=== PATIENT | female | born 1945 | race Caucasian/White ===

== ENCOUNTER 2025-11-05 03:19 | Inpatient (IN) | payer BC, MEDICARE ==
[2025-11-05 03:45] LABS: #Basophils 0.03 10x3/uL (0.0-0.2); #Eosinophils 0.03 10x3/uL (0.0-0.5); #Monocytes 0.73 10x3/uL (0.0-1.1); #Neutrophils 7.72 10x3/uL (1.5-8.4); %Basophils 0.3 % (0.0-2.0); %Eosinophils 0.3 % (0.0-6.0); %Lymphocytes 16.4 % (18.0-47.0); %Monocytes 7.1 % (0.0-10.0); %Neutrophils 75.5 % (40.0-75.0); Hematocrit 32.7 % (34.9-44.5); Hemoglobin 10.3 g/dL (12.0-15.5); Mean Corpuscular Hemoglobin 28.3 pg (27.0-33.0); Mean Corpuscular Volume 89.8 fL (81.6-98.3); Platelet Count 221 10x3/uL (150-450); Red Blood Cell (RBC) Count 3.64 10x6/uL (3.90-5.03); White Blood Cell (WBC) Count 10.23 10x3/uL (3.5-10.5)
[2025-11-05 04:05] LABS: ALT (SGPT) 22 U/L (Less than 34); AST (SGOT) 28 U/L (11-34); Albumin 3.7 g/dL (3.1-4.5); Alkaline Phosphatase 46 U/L (40-110); Anion Gap 15 mmol/L (10-20); BUN (Urea Nitrogen) 25 mg/dL (9.8-20.1); Bilirubin, Total 0.4 mg/dL (0.3-1.2); Calc. Creatinine Clearance 0 mL/min (70-130); Calcium 9.3 mg/dL (7.8-10.44); Carbon Dioxide 22 mmol/L (23-31); Chloride 106 mmol/L (98-107); Globulin 3.1 g/dL (2.4-3.5); Glucose 113 mg/dL (83-110); Potassium 4.1 mmol/L (3.5-5.1); Sodium 139 mmol/L (136-145); Troponin I 0.013 ng/mL (< 0.028)
[2025-11-05] MEDS ORDERED: Ondansetron PF 4 MG/2 ML Vial IVP PRN (04:23)
[2025-11-05] MEDS ORDERED: Calcium Carbonate 500 MG ChewTAB PO PRN (04:23)
[2025-11-05] MEDS ORDERED: Guaifenesin DM 100-10/5 ML UDCUP PO PRN (04:23)
[2025-11-05] MEDS ORDERED: Acetaminophen 325 MG TAB PO PRN (04:23)
[2025-11-05] MEDS ORDERED: Bisacodyl 10 MG SUPP PR PRN (04:23)
[2025-11-05] MEDS ORDERED: Senokot S 8.6-50 MG TAB PO PRN (04:23)
[2025-11-05] MEDS ORDERED: Melatonin 3 MG TAB PO PRN (04:23)
[2025-11-05] MEDS ORDERED: Electrolyte Replacement Protocol 1 EACH FS SCH (04:30)
[2025-11-05] MEDS ORDERED: Nitroglycerin 0.4 MG TAB (25 Tab Bottle) SL PRN (05:10)
[2025-11-05 05:29] VITALS: BMI 27.4
[2025-11-05] MEDS ORDERED: PHOS-NAK 1 PKT PACK PO PRN (05:45)
[2025-11-05] MEDS ORDERED: Potassium Chloride 20 MEQ in Premix 1 BAG IVPB PRN (05:45)
[2025-11-05] MEDS: Carvedilol 12.5 MG TAB PO SCH (06:19)
[2025-11-05] MEDS ORDERED: Carvedilol 12.5 MG TAB PO SCH ×2 (08:00→21:00)
[2025-11-05 08:37] LABS: Cardiac Risk 2.3 (Less than 4.5); Cholesterol 135.0 mg/dl (< 200 Desired); HDL Cholesterol 59.0 mg/dL (>60 Neg Risk); LDL Cholesterol, Calculated 62.0 mg/dL; Triglycerides 69.0 mg/dL (Less than 150)
[2025-11-05] MEDS ORDERED: Enoxaparin 40 MG (0.4 mL) SYRINGE SC SCH ×2 (09:00→21:00)
[2025-11-05] MEDS ORDERED: Lisinopril 10 MG TAB PO SCH (09:00)
[2025-11-05] MEDS: Lisinopril 20 MG TAB PO SCH (09:13)
[2025-11-05] MEDS: Apixaban 5 MG TAB PO SCH (10:10)
[2025-11-05] MEDS: Apixaban 2.5 MG TAB PO SCH ×2 (10:10→20:00)
[2025-11-06 04:18] LABS: #Basophils 0.03 10x3/uL (0.0-0.2); #Eosinophils 0.21 10x3/uL (0.0-0.5); #Monocytes 0.62 10x3/uL (0.0-1.1); #Neutrophils 3.80 10x3/uL (1.5-8.4); %Basophils 0.5 % (0.0-2.0); %Eosinophils 3.3 % (0.0-6.0); %Lymphocytes 27.6 % (18.0-47.0); %Monocytes 9.6 % (0.0-10.0); %Neutrophils 58.7 % (40.0-75.0); Hematocrit 31.8 % (34.9-44.5); Hemoglobin 10.5 g/dL (12.0-15.5); Mean Corpuscular Hemoglobin 29.2 pg (27.0-33.0); Mean Corpuscular Volume 88.6 fL (81.6-98.3); Platelet Count 219 10x3/uL (150-450); Red Blood Cell (RBC) Count 3.59 10x6/uL (3.90-5.03); White Blood Cell (WBC) Count 6.46 10x3/uL (3.5-10.5)
[2025-11-06 04:36] LABS: ALT (SGPT) 17 U/L (Less than 34); AST (SGOT) 26 U/L (11-34); Albumin 3.4 g/dL (3.1-4.5); Alkaline Phosphatase 41 U/L (40-110); Anion Gap 13 mmol/L (10-20); BUN (Urea Nitrogen) 19 mg/dL (9.8-20.1); Bilirubin, Total 0.5 mg/dL (0.3-1.2); Calc. Creatinine Clearance 39 mL/min (70-130); Calcium 9.5 mg/dL (7.8-10.44); Carbon Dioxide 25 mmol/L (23-31); Chloride 105 mmol/L (98-107); Globulin 3.2 g/dL (2.4-3.5); Glucose 88 mg/dL (83-110); Magnesium 1.5 mg/dL (1.6-2.6); Potassium 4.0 mmol/L (3.5-5.1); Sodium 139 mmol/L (136-145)
[2025-11-06] MEDS: Magnesium Sulfate In Water 4 GM in Premix 1 BAG IVPB PRN (04:50)
[2025-11-06 08:24] VITALS: BP 138/63; TEMP 97.7
[2025-11-06] MEDS: Aspirin 81 mg Enteric Coated Tablet PO SCH (08:27)
[2025-11-06] MEDS: Folic Acid 1 MG TAB PO SCH (08:29)
== END 2025-11-06 12:26 | disposition home or self-care (01) | DRG 305 ==
LOC: CSHERS 03:19 → CSHTELE 04:23
PROVIDERS: ADMIT Internal Medicine; ATTEND Family Medicine
DX: I16.0 Hypertensive urgency (principal); N17.9 Acute kidney failure, unspecified; I25.10 Atherosclerotic heart disease of native coronary artery without angina pectoris; Z95.5 Presence of coronary angioplasty implant and graft; E78.5 Hyperlipidemia, unspecified; I48.0 Paroxysmal atrial fibrillation; I73.9 Peripheral vascular disease, unspecified; M35.3 Polymyalgia rheumatica; I12.9 Hypertensive chronic kidney disease with stage 1 through stage 4 chronic kidney disease, or unspecified chronic kidney disease; N18.9 Chronic kidney disease, unspecified; Z88.2 Allergy status to sulfonamides; Z90.710 Acquired absence of both cervix and uterus; Z79.01 Long term (current) use of anticoagulants; Z79.899 Other long term (current) drug therapy
CPT/HCPCS: 36415; 80053; 80061; 83036; 83735; 84100; 84443; 84484; 85025; 93005; 93306; 96365; J3475; J7512